=== PATIENT | male | born 1950 | race Caucasian/White ===

== ENCOUNTER 2019-05-23 11:43 | Observation (INO) ==
[2019-05-23 12:26] LABS: BASOPHILS % (AUTO) 0.6 % (0.2-1.0); EOSINOPHILS # (AUTO) 0.3 x10^3/uL (0.0-0.2); EOSINOPHILS % (AUTO) 3.3 % (0.9-2.9); HEMATOCRIT 43.4 % (42.0-54.0); HEMOGLOBIN 14.8 g/dL (13.5-18.0); LYMPHOCYTES # (AUTO) 1.3 X10^3/uL (1.3-2.9); LYMPHOCYTES % (AUTO) 15.3 % (21.0-51.0); MEAN CORPUSCULAR HEMOGLOBIN 31.5 pg (27.0-34.0); MEAN CORPUSCULAR HGB CONC 34.1 g/dL (33.0-35.0); MEAN CORPUSCULAR VOLUME 92.4 fL (80.0-100.0); MEAN PLATELET VOLUME 8.4 fL (7.4-11.0); MONOCYTES # (AUTO) 0.4 x10^3/uL (0.3-0.8); MONOCYTES % (AUTO) 5.2 % (0.0-13.0); NEUTROPHILS # (AUTO) 6.4 x10^3/uL (2.2-4.8); NEUTROPHILS % (AUTO) 75.6 % (42.0-75.0); PLATELET COUNT 166 X10^3/uL (150.0-450.0); RED BLOOD COUNT 4.69 X10^6/uL (4.7-6.0); RED CELL DISTRIBUTION WIDTH 13.3 % (11.6-16.5); WHITE BLOOD COUNT 8.5 X10^3/uL (3.6-10.0)
[2019-05-23 12:40] LABS: ALBUMIN 3.2 g/dL (3.4-5.0); CALCIUM 8.9 mg/dL (8.5-10.1); CARBON DIOXIDE 28.3 mmol/L (21-32); COR CA(FOR HYPOALB) 9.5 mg/dL (8.5-10.1); CREATININE 1.64 mg/dL (0.70-1.30); TOTAL PROTEIN 7.1 g/dL (6.4-8.2)
[2019-05-23] MEDS ORDERED: NS 1000 ML 1,000 ML IV SCH (13:00)
[2019-05-23 13:10] LABS: CKMB % 1.4 % (<4); CREATINE KINASE 71 Units/L (39-308); TROPONIN I < 0.02 ng/mL (0-1.5)
--- NOTE | 2019-05-23 15:11 | DR.GENAD ---
HPI Time Seen Time Seen by Provider: 05/23/19 12:03 PCP Primary Care Physician: KALPANA Source History Provided: Patient and EMS Mode of Arrival Mode of Arrival: EMS Timing Onset of Chief Complaint: 05/23/19 PMH PMH Past Medical History: Yes Past Medical History: Asthma, Dementia and Hypertension Past Surgical History: Yes Family History History of Family Medical Conditions: No Social History Does patient currently use any type of tobacco product: No Have you used tobacco products in the last 12 months: No Type of Tobacco Use: None Does any household member use tobacco: No Alcohol Use: None Do you use any recreational Drugs:: No Lives With: Family Lives Where: Home infectious screening In the last 2 months have you had wt loss of >10#?: NO Have you had fever, night sweats or hemotysis?: No Have you traveled outside the country in the last 6 months?: No Isolation: Standard ROS Review of Systems Constitutional: No Symptoms Reported Eyes: No Symptoms Reported ENTM: No Symptoms Reported Respiratoy: No Symptoms Reported Cardiovascular: No Symptoms Reported Gastrointestinal/Abdominal: No Symptoms Reported Genitourinary: No Symptoms Reported Neurological: No Symptoms Reported Musculoskeletal: No Symptoms Reported Integumentary: No Symptoms Reported Endocrine: No Symptoms Reported All Other Systems: Reviewed and Negative PE Vital Signs Vitals: Temperature 98.7 F Pulse Rate [Apical] 68 Pulse Rate 55 Respiratory Rate 13 Blood Pressure [Right Arm] 148/93 Blood Pressure 142/72 O2 Sat by Pulse Oximetry 96 General Limitations: No Limitations General Appearance: Alert, In No Apparent Distress, Appears Intoxicated and Anxious Head Head Exam: Normal Inspection, Atraumatic and Normocephalic Eyes Eye exam: Normal Appearance, PERRL and EOMI ENT ENT Exam: Normal Exam, Normal Oropharynx and Normal External Ear Exam External Ear Exam: Normal External Inspection and Auricular Hematoma TM/Canal Exam: Bilateral: Normal Nose Exam: Normal Nose Exam Mouth Exam: Normal Inspection Throat Exam: Normal Inspection Neck Neck Exam: Normal Inspection Chest Chest Inspection: Normal Inspection and Symmetric Chest Wall Rise Respiratory Respiratory Exam: Normal Lung Sounds Bilat Respiratory Exam: Bilateral: Clear to Auscultation Cardiovascular Cardiovascular Exam: Regular Rate and Normal Rhythm Abdominal Exam Abdominal Exam: Normal Inspection, Normal Bowel Sounds and Soft Extremities Extremities Exam: Normal Inspection and Full ROM Back Back Exam: Normal Inspection and Full ROM Neurologic Neurological Exam: Alert and Oriented X3 Psychiatric Psychiatric Exam: Normal Affect and Normal Mood Skin Skin Exam: Warm, Dry and Intact COURSE Treatment Treatment: Chest pain r/o protocol, Reevaluation 1st: Improved ROR Labs Reviewed Laboratory Results Reviewed?: Yes Result Diagrams: 05/23/19 12:17 05/23/19 12:17 Laboratory: WBC 8.5 X10^3/uL (3.6-10.0) 05/23/19 12:17 RBC 4.69 X10^6/uL (4.7-6.0) L 05/23/19 12:17 Hgb 14.8 g/dL (13.5-18.0) 05/23/19 12:17 Hct 43.4 % (42.0-54.0) 05/23/19 12:17 MCV 92.4 fL (80.0-100.0) 05/23/19 12:17 MCH 31.5 pg (27.0-34.0) 05/23/19 12:17 MCHC 34.1 g/dL (33.0-35.0) 05/23/19 12:17 RDW 13.3 % (11.6-16.5) 05/23/19 12:17 Plt Count 166 X10^3/uL (150.0-450.0) 05/23/19 12:17 MPV 8.4 fL (7.4-11.0) 05/23/19 12:17 Neut % (Auto) 75.6 % (42.0-75.0) H 05/23/19 12:17 Lymph % (Auto) 15.3 % (21.0-51.0) L 05/23/19 12:17 [place] % (Auto) 5.2 % (0.0-13.0) 05/23/19 12:17 Eos % (Auto) 3.3 % (0.9-2.9) H 05/23/19 12:17 Baso % (Auto) 0.6 % (0.2-1.0) 05/23/19 12:17 Neut # (Auto) 6.4 x10^3/uL (2.2-4.8) H 05/23/19 12:17 Lymph # (Auto) 1.3 X10^3/uL (1.3-2.9) 05/23/19 12:17 [place] # (Auto) 0.4 x10^3/uL (0.3-0.8) 05/23/19 12:17 Eos # (Auto) 0.3 x10^3/uL (0.0-0.2) H 05/23/19 12:17 Baso # (Auto) 0.0 X10^3/uL (0.0-0.1) 05/23/19 12:17 Absolute Nucleated RBC 0.0 /100WBC 05/23/19 12:17 INR Target Range - 05/23/19 12:17 INR 1.00 (0.8-1.3) 05/23/19 12:17 Sodium 143 mmol/L (136-145) 05/23/19 12:17 Corrected Sodium 143 mmol/L (136-145) 05/23/19 12:17 Potassium 4.1 mmol/L (3.5-5.1) 05/23/19 12:17 Chloride 106 mmol/L (98-107) 05/23/19 12:17 Carbon Dioxide 28.3 mmol/L (21-32) 05/23/19 12:17 BUN 25 mg/dL (7-18) H 05/23/19 12:17 Creatinine 1.64 mg/dL (0.70-1.30) H 05/23/19 12:17 Est GFR (MDRD) Af Amer 54 (>60) L 05/23/19 12:17 Est GFR (MDRD) Non-Af 44 (>60) L 05/23/19 12:17 Glucose 112 mg/dL (65-99) H 05/23/19 12:17 Calcium 8.9 mg/dL (8.5-10.1) 05/23/19 12:17 Corrected Calcium 9.5 mg/dL (8.5-10.1) 05/23/19 12:17 Magnesium 2.0 mg/dL (1.7-2.9) 05/23/19 12:17 Total Bilirubin 0.60 mg/dL (0.2-1.0) 05/23/19 12:17 AST 31 Units/L (15-37) 05/23/19 12:17 ALT 33 Units/L (12-78) 05/23/19 12:17 Alkaline Phosphatase 136 Units/L (46-116) H 05/23/19 12:17 Creatine Kinase 71 Units/L (39-308) 05/23/19 12:17 CK-MB (CK-2) 1.0 ng/mL (0-4.0) 05/23/19 12:17 CK/CKMB % Calc 1.4 % (<4) 05/23/19 12:17 Troponin I < 0.02 ng/mL (0-1.5) 05/23/19 12:17 C-Reactive Protein 1.30 mg/L (0-3.0) 05/23/19 12:17 Total Protein 7.1 g/dL (6.4-8.2) 05/23/19 12:17 Albumin 3.2 g/dL (3.4-5.0) L 05/23/19 12:17 Globulin 3.9 g/dL (2.5-4.5) 05/23/19 12:17 Albumin/Globulin Ratio 0.8 Ratio (1.1-2.1) L 05/23/19 12:17 Other Results Comments: CT Brain: Advanced degenerative white matter hypoattenuation of the supratentorial brain, 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 Age-related cortical volume loss. Otherwise no acute intracranial abnormalities. Individualized dose optimization technique were utilized to reduce radiation dose through one or more of the following means: automated exposure control adjustment of mA and /or KV according to patient size, or through use of iterative reconstruction technique. Opioid Opioid Risk Tool Total: 0 Total Score Risk Category: Low Risk Copyright: [facility] predicting aberrant behaviors Diagnosis Discharge Problem: Syncope Qualifiers: Syncope type: unspecified Qualified Code(s): R55 - Syncope and collapse
[2019-05-23] MEDS ORDERED: DUONEB 0.5 MG/3 MG IN PRN (15:20)
[2019-05-23] MEDS ORDERED: NS 1000 ML 1,000 ML ONE (15:36)
[2019-05-23] MEDS: NS 1000 ML 1,000 ML IV SCH (15:48)
[2019-05-23 16:57] LABS: BILIRUBIN,URINE NEGATIVE (NEGATIVE); BLOOD/HEMOGLOBIN,URINE 1+ (NEGATIVE); GLUCOSE, URINE NEGATIVE (NEGATIVE); KETONES,URINE 2+ (NEGATIVE); LEUKOCYTE ESTERASE ,URINE NEGATIVE (NEGATIVE); NITRITES,URINE NEGATIVE (NEGATIVE); PH,URINE 6.5 (5.0 - 8.0); PROTEIN,URINE NEGATIVE (NEGATIVE); UROBILINOGEN,URINE NORMAL (NORMAL)
[2019-05-23 17:02] LABS: AMORPHOUS SEDIMENT,UR TRACE /HPF (NEGATIVE); APPEARANCE,URINE CLEAR (CLEAR); BACTERIA,URINE NEGATIVE /HPF (NEGATIVE); COLOR,URINE PALE YELLOW (YELLOW); SQUAMOUS EPITHELIAL CELL,UR RARE /HPF (NEGATIVE)
[2019-05-23 17:53] VITALS: BMI 23.6
[2019-05-23 19:17] LABS: CKMB % 1.7 % (<4); CREATINE KINASE 66 Units/L (39-308); CREATINE KINASE MB 1.1 ng/mL (0-4.0); TROPONIN I < 0.02 ng/mL (0-1.5)
[2019-05-23] MEDS: ARICEPT TAB 10 MG PO SCH (20:55)
[2019-05-23] MEDS: NAMENDA TAB 10 MG PO SCH (20:55)
[2019-05-24 01:08] LABS: CKMB % 1.5 % (<4); CREATINE KINASE 69 Units/L (39-308); TROPONIN I < 0.02 ng/mL (0-1.5)
[2019-05-24 05:02] LABS: BASOPHILS # (AUTO) 0.1 X10^3/uL (0.0-0.1); BASOPHILS % (AUTO) 1.1 % (0.2-1.0); EOSINOPHILS # (AUTO) 0.3 x10^3/uL (0.0-0.2); EOSINOPHILS % (AUTO) 3.4 % (0.9-2.9); HEMATOCRIT 40.6 % (42.0-54.0); LYMPHOCYTES # (AUTO) 2.2 X10^3/uL (1.3-2.9); LYMPHOCYTES % (AUTO) 23.8 % (21.0-51.0); MEAN CORPUSCULAR HEMOGLOBIN 31.9 pg (27.0-34.0); MEAN CORPUSCULAR HGB CONC 34.5 g/dL (33.0-35.0); MEAN CORPUSCULAR VOLUME 92.3 fL (80.0-100.0); MEAN PLATELET VOLUME 8.7 fL (7.4-11.0); MONOCYTES # (AUTO) 0.5 x10^3/uL (0.3-0.8); MONOCYTES % (AUTO) 5.6 % (0.0-13.0); NEUTROPHILS # (AUTO) 6.2 x10^3/uL (2.2-4.8); NEUTROPHILS % (AUTO) 66.1 % (42.0-75.0); PLATELET COUNT 154 X10^3/uL (150.0-450.0); RED CELL DISTRIBUTION WIDTH 13.2 % (11.6-16.5); WHITE BLOOD COUNT 9.4 X10^3/uL (3.6-10.0)
[2019-05-24 05:18] LABS: ALANINE AMINOTRANSFERASE 31 Units/L (12-78); ALBUMIN 2.9 g/dL (3.4-5.0); ALKALINE PHOSPHATASE 120 Units/L (46-116); ASPARTATE AMINO TRANSFERASE 26 Units/L (15-37); BLOOD UREA NITROGEN 23 mg/dL (7-18); CALCIUM 8.4 mg/dL (8.5-10.1); CARBON DIOXIDE 27.2 mmol/L (21-32); CHLORIDE 108 mmol/L (98-107); CHOLESTEROL 180 mg/dL (0-200); COR CA(FOR HYPOALB) 9.3 mg/dL (8.5-10.1); CREATININE 1.43 mg/dL (0.70-1.30); HDL CHOLESTEROL 45 mg/dL (40-60); SODIUM 143 mmol/L (136-145); TOTAL PROTEIN 6.4 g/dL (6.4-8.2); TRIGLYCERIDES 57 mg/dL (0-150); eGFR NON BLACK RACES 52 (>60)
[2019-05-24] MEDS: NS 1000 ML 1,000 ML IV SCH ×2 (05:21→21:43)
[2019-05-24] MEDS ORDERED: K-RIDER 10 MEQ/NS 100 ML 10 MEQ/100 ML BAG IV PRN (05:23)
[2019-05-24] MEDS ORDERED: POTASSIUM CHL 40 MEQ/NS 0.45% 500 ML IV PRN (05:23)
[2019-05-24] MEDS ORDERED: POTASSIUM CHL 60 MEQ/NS 0.45% 500 ML IV PRN (05:23)
[2019-05-24] MEDS ORDERED: POTASSIUM CHLORIDE LIQ 20 MEQ UDC PO PRN (05:23)
[2019-05-24] MEDS ORDERED: K-DUR TAB 20 MEQ PO PRN (05:23)
[2019-05-24] MEDS ORDERED: MICRO K EXTEN CAP 10 MEQ PO PRN (05:23)
[2019-05-24] MEDS ORDERED: KLOR-CON PO PRN (05:23)
[2019-05-24] MEDS: MAGNESIUM SULFATE 1 GRAM/100 mL PREMIX 1 GM/100 ML BAG IV PRN ×2 (06:35→10:30)
[2019-05-24] MEDS: NAMENDA TAB 10 MG PO SCH ×2 (09:45→20:40)
[2019-05-24] MEDS ORDERED: PHARMACY CONSULT - DOSE _____ XX SCH (11:00)
[2019-05-24] MEDS: FLONASE NASAL SPRAY ENOSTRIL SCH (13:45)
--- NOTE | 2019-05-24 19:07 | DR.H&P ---
H&P - History & Physical for Day of: H&P Date: 05/23/19 - Chief Complaint Chief Complaint: SYNCOPE, HYPOTENSION - History of Present Illness History of Present Illness: IS A 69 YEAR OLD PATIENT OF OURS WHO PRESENTED TO THE ER WITH REPORTS OF PASSING OUT AFTER TAKING A SHOWER. FAMILY REPORTS THAT HE WAS UNCONSCIOUS FOR APPROXIMATELY 3 MINUTES. EMS WAS CALLED FOR TRANSPORT TO THE ER. EMS REPORTED THAT ON ARRIVAL TO PATIENTS RESIDENCE, HE WAS NOTED WITH A BLOOD PRESSURE OF 78/56. ON ARRIVAL TO THE ER, PATIENT WAS ALERT AND ORIENTED WITH NO COMPLAINTS OF PAIN. HIS VITALS WERE 98.7-55-17-97%-142/72. LABS WERE OBTAINED. ABNORMAL LAB VALUES INCLUDE THE FOLLOWING: RBC 4.69, BUN 25, CREATININE 1.64, GLUCOSE 112, ALK PHOS 136, ALBUMIN 3.2. CARDIAC ENZYMES WITHIN NORMAL LIMITS. A URINALYSIS WAS OBTAINED AND REVEALED: WBC 0-2, RBC 3-5, LEUKOCYTES NEGATIVE, BACTERIA NEGATIVE, NITRITE NEGATIVE. EKG OBTAINED AND REVEALED: SINUS RHYTHM WITH HR 58. A CHEST XRAY WAS OBTAINED AND REVEALED: NO ACUTE CARDIOPULMONARY ABNORMALITY. 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 AGE RELEATED CORTICAL VOLUME LOSS. OTHERWISE, NO ACUTE INTRACRANIAL ABNORMALITIES. HE WAS STARTED ON NORMAL SALINE AT 125ML/HR AND ADMITTED FOR FURTHER EVALUATION AND TREATMENT OF SYNCOPE AND MILD DEHYDRATION. WE PLAN TO FOLLOW UP WITH AM LABS AND CONTINUE TO MONITOR. - Past Medical History Past Medical History: Hypertension, Dementia, Asthma - Past Surgical History Surgical History: Other - Family History Family Medical History: Diabetes Mellitus, NM, Hypertension - Social History Does patient currently use any type of tobacco product: No Have you used tobacco products in the last 12 months: No Type of Tobacco Use: None How many years tobacco product used: 15 Does any household member use tobacco: No Alcohol Use: None Drug Use: Prescription Drugs Prescription drug monitoring program results: PDMP reviewed and no concerns identified - Medications Home Medications: Sulfa (Sulfonamide Antibiotics) [SULFA] Allergy (Verified 05/23/19 11:50) CONTINUE taking the following medications amlodipine 5 mg PO DAILY 05/23/19 [History] donepezil 10 mg PO HS 05/23/19 [History] fluticasone propionate [Flonase Allergy Relief] 2 spray INTRANASAL QDAY 05/23/19 [History] ipratropium-albuterol 1 puff INHALATION QID PRN 05/23/19 [History] memantine 10 mg PO BID 05/23/19 [History] - Review of Systems Constitutional: Weakness Eyes: No Symptoms Reported ENT: No Symptoms Reported Respiratory: No Symptoms Reported Cardiovascular: No Symptoms Reported Gastrointestinal: No Symptoms Reported Genitourinary: No Symptoms Reported Musculoskeletal: No Symptoms Reported Skin: No Symptoms Reported Neurological: Weakness - Physical Exam Vital Signs: Temperature 98.2 F Pulse Rate [Right Brachial] 67 Pulse Rate [Apical] 68 Pulse Rate 70 Respiratory Rate 20 Blood Pressure [Right Arm] 129/78 Blood Pressure 142/72 O2 Sat by Pulse Oximetry 97 Oriented: Normal Eyes: Normal Ear: Normal Nose: Normal Throat: Normal Respiratory: Clear Throughout Cardiovascular: Bradycardia. negative: S3, S4, Murmur : Normal Auscultation: Bowel Sounds: Normal Palpation: Normal Tenderness: Normal Skin: Decreased Turgur Musculoskeletal: Normal Psychiatric: Normal Mood Description: Calm Affect: Normal Speech Pattern: Clear - Assessment/Plan (1) Dehydration Status: Acute Plan: NORMAL SALINE AT 125ML/HR, CONTINUE TO MONITOR (2) Syncope Qualifiers: Syncope type: unspecified Qualified Code(s): R55 - Syncope and collapse Status: Acute Plan: CAROTID DOPPLER AND ECHO IN AM, CONTINUE TO MONITOR - Allergies Allergies/Adverse Reactions: Allergies Allergy/AdvReac Type Severity Reaction Status Date / Time Sulfa (Sulfonamide Allergy Verified 05/23/19 11:50 Antibiotics) [SULFA]
[2019-05-24] MEDS: ARICEPT TAB 10 MG PO SCH (20:40)
[2019-05-25 05:11] LABS: BASOPHILS % (AUTO) 0.5 % (0.2-1.0); EOSINOPHILS # (AUTO) 0.4 x10^3/uL (0.0-0.2); EOSINOPHILS % (AUTO) 4.4 % (0.9-2.9); HEMATOCRIT 39.4 % (42.0-54.0); HEMOGLOBIN 13.6 g/dL (13.5-18.0); LYMPHOCYTES # (AUTO) 2.4 X10^3/uL (1.3-2.9); MEAN CORPUSCULAR HEMOGLOBIN 31.9 pg (27.0-34.0); MEAN CORPUSCULAR HGB CONC 34.6 g/dL (33.0-35.0); MEAN CORPUSCULAR VOLUME 92.2 fL (80.0-100.0); MEAN PLATELET VOLUME 8.8 fL (7.4-11.0); MONOCYTES # (AUTO) 0.6 x10^3/uL (0.3-0.8); MONOCYTES % (AUTO) 5.7 % (0.0-13.0); NEUTROPHILS # (AUTO) 6.5 x10^3/uL (2.2-4.8); NEUTROPHILS % (AUTO) 65.4 % (42.0-75.0); PLATELET COUNT 165 X10^3/uL (150.0-450.0); RED BLOOD COUNT 4.28 X10^6/uL (4.7-6.0); RED CELL DISTRIBUTION WIDTH 13.2 % (11.6-16.5); WHITE BLOOD COUNT 9.9 X10^3/uL (3.6-10.0)
[2019-05-25 05:20] LABS: ALANINE AMINOTRANSFERASE 24 Units/L (12-78); ALBUMIN 2.9 g/dL (3.4-5.0); ALKALINE PHOSPHATASE 112 Units/L (46-116); ASPARTATE AMINO TRANSFERASE 26 Units/L (15-37); BLOOD UREA NITROGEN 18 mg/dL (7-18); CALCIUM 8.4 mg/dL (8.5-10.1); CARBON DIOXIDE 29.7 mmol/L (21-32); CHLORIDE 106 mmol/L (98-107); COR CA(FOR HYPOALB) 9.3 mg/dL (8.5-10.1); CREATININE 1.32 mg/dL (0.70-1.30); SODIUM 142 mmol/L (136-145); TOTAL PROTEIN 6.5 g/dL (6.4-8.2); eGFR NON BLACK RACES 57 (>60)
[2019-05-25 08:08] VITALS: BP 170/98
[2019-05-25] MEDS ORDERED: NORVASC TAB 5 MG PO SCH (09:00)
[2019-05-25] MEDS: NAMENDA TAB 10 MG PO SCH (09:12)
[2019-05-25] MEDS: FLONASE NASAL SPRAY ENOSTRIL SCH (09:14)
--- NOTE | 2019-05-25 10:22 | PCM.PROG ---
Progress Note - Progress Note for Day of Date of Exam: 05/24/19 - Subjective Subjective: WAS ADMITTED FOR SYNCOPE AND DEHYDRATION. TODAY, HE IS ALERT AND ORIENTED, LYING IN BED ON MORNING ROUNDS. HE REPORTS COMPLAINTS OF WEAKNESS AND INTERMITTENT DIZZINESS TODAY. ON EXAMINATION, HEART IS REGULAR IN RATE AND RHYTHM. BILATERAL LUNGS ARE NOTED WITH DIMINISHED LUNG SOUNDS THROUGHOUT. ABDOMEN IS ROUND, SOFT, AND NON-TENDER WITH NORMAL BOWEL SOUNDS NOTED IN ALL QUADRNATS. HIS VITALS THIS MORNING ARE: 98.0-68-18-97%-136/80. LABS WERE OBTAINED. ABNORMAL LAB VALUES INCLUDE THE FOLLOWING: RBC 4.40, HCT 40.6, CHLORIDE 108, BUN 23, CREATININE 1.43, CALCIUM 8.4, ALK PHOS 120, ALBUMIN 2.9, LDL 124. CARDIAC ENZYMES HAVE BEEN WITHIN NORMAL LIMITS. NO CHANGES NOTED TO EKGs. TODAY, WE WILL OBTAIN A CAROTID DOPPLER AND ECHO. OTHERWISE, WE WILL CONTINUE TO MONITOR ON TELEMETRY AND FOLLOW UP WITH AM LABS. - Past Medical Family Social History Past Med/Fam/Surg Hx: No changes since H&P Allergies: Allergies Sulfa (Sulfonamide Antibiotics) [SULFA] Allergy (Verified 05/23/19 11:50) - Review of Systems ROS: No change since H&P - Vital Signs and I&O's Vital Signs: Temperature 98.3 F Pulse Rate [Right Brachial] 55 Pulse Rate [Apical] 68 Pulse Rate 68 Respiratory Rate 18 Blood Pressure [Right Arm] 170/98 Blood Pressure 142/72 O2 Sat by Pulse Oximetry 96 Intake and Output: Intake & Output 05/22/19 05/23/19 05/24/19 05/25/19 11:59 11:59 11:59 11:59 Intake Total 2124 / 2124 2260 / 2260 Output Total 1100 / 1100 950 / 950 Balance 1024 / 1024 1310 / 1310 - Physical Exam Oriented: Normal Eyes: Normal Ear: Normal Nose: Normal Throat: Normal Respiratory: Generalized, Diminished Cardiovascular: Normal. negative: S3, S4, Murmur : Normal Auscultation: Bowel Sounds: Normal Palpation: Normal Tenderness: Normal Skin: Decreased Turgur Musculoskeletal: Normal Psychiatric: Normal Mood Description: Calm Affect: Normal Speech Pattern: Clear - Laboratory and Diagnostics Result Diagrams: 05/25/19 04:51 05/25/19 04:51 Labs: Laboratory WBC 9.9 X10^3/uL (3.6-10.0) 05/25/19 04:51 RBC 4.28 X10^6/uL (4.7-6.0) L 05/25/19 04:51 Hgb 13.6 g/dL (13.5-18.0) 05/25/19 04:51 Hct 39.4 % (42.0-54.0) L 05/25/19 04:51 MCV 92.2 fL (80.0-100.0) 05/25/19 04:51 MCH 31.9 pg (27.0-34.0) 05/25/19 04:51 MCHC 34.6 g/dL (33.0-35.0) 05/25/19 04:51 RDW 13.2 % (11.6-16.5) 05/25/19 04:51 Plt Count 165 X10^3/uL (150.0-450.0) 05/25/19 04:51 MPV 8.8 fL (7.4-11.0) 05/25/19 04:51 Neut % (Auto) 65.4 % (42.0-75.0) 05/25/19 04:51 Lymph % (Auto) 24.0 % (21.0-51.0) 05/25/19 04:51 [place] % (Auto) 5.7 % (0.0-13.0) 05/25/19 04:51 Eos % (Auto) 4.4 % (0.9-2.9) H 05/25/19 04:51 Baso % (Auto) 0.5 % (0.2-1.0) 05/25/19 04:51 Neut # (Auto) 6.5 x10^3/uL (2.2-4.8) H 05/25/19 04:51 Lymph # (Auto) 2.4 X10^3/uL (1.3-2.9) 05/25/19 04:51 [place] # (Auto) 0.6 x10^3/uL (0.3-0.8) 05/25/19 04:51 Eos # (Auto) 0.4 x10^3/uL (0.0-0.2) H 05/25/19 04:51 Baso # (Auto) 0.0 X10^3/uL (0.0-0.1) 05/25/19 04:51 Absolute Nucleated RBC 0.0 /100WBC 05/25/19 04:51 INR Target Range - 05/23/19 12:17 INR 1.00 (0.8-1.3) 05/23/19 12:17 Sodium 142 mmol/L (136-145) 05/25/19 04:51 Corrected Sodium TNP 05/25/19 04:51 Potassium 3.6 mmol/L (3.5-5.1) 05/25/19 04:51 Chloride 106 mmol/L (98-107) 05/25/19 04:51 Carbon Dioxide 29.7 mmol/L (21-32) 05/25/19 04:51 BUN 18 mg/dL (7-18) 05/25/19 04:51 Creatinine 1.32 mg/dL (0.70-1.30) H 05/25/19 04:51 Est GFR (MDRD) Af Amer > 60 (>60) 05/25/19 04:51 Est GFR (MDRD) Non-Af 57 (>60) L 05/25/19 04:51 Glucose 97 mg/dL (65-99) 05/25/19 04:51 Calcium 8.4 mg/dL (8.5-10.1) L 05/25/19 04:51 Corrected Calcium 9.3 mg/dL (8.5-10.1) 05/25/19 04:51 Magnesium 2.0 mg/dL (1.7-2.9) 05/25/19 04:51 Total Bilirubin 0.40 mg/dL (0.2-1.0) 05/25/19 04:51 AST 26 Units/L (15-37) 05/25/19 04:51 ALT 24 Units/L (12-78) 05/25/19 04:51 Alkaline Phosphatase 112 Units/L (46-116) 05/25/19 04:51 Creatine Kinase 69 Units/L (39-308) 05/24/19 00:18 CK-MB (CK-2) 1.0 ng/mL (0-4.0) 05/24/19 00:18 CK/CKMB % Calc 1.5 % (<4) 05/24/19 00:18 Troponin I < 0.02 ng/mL (0-1.5) 05/24/19 00:18 C-Reactive Protein 1.30 mg/L (0-3.0) 05/23/19 12:17 Total Protein 6.5 g/dL (6.4-8.2) 05/25/19 04:51 Albumin 2.9 g/dL (3.4-5.0) L 05/25/19 04:51 Globulin 3.6 g/dL (2.5-4.5) 05/25/19 04:51 Albumin/Globulin Ratio 0.8 Ratio (1.1-2.1) L 05/25/19 04:51 Triglycerides 57 mg/dL (0-150) 05/24/19 04:14 Cholesterol 180 mg/dL (0-200) 05/24/19 04:14 LDL Cholesterol, Calc 124 mg/dL (0-100) H 05/24/19 04:14 HDL Cholesterol 45 mg/dL (40-60) 05/24/19 04:14 Cholesterol/HDL Ratio 4.0 (0.0-5.0) 05/24/19 04:14 Specimen Type Clean catch urine 05/23/19 16:48 Urine Color Pale yellow (YELLOW) 05/23/19 16:48 Urine Appearance Clear (CLEAR) 05/23/19 16:48 Urine pH 6.5 (5.0 - 8.0) 05/23/19 16:48 Ur Specific [place] 1.010 (1.000-1.030) 05/23/19 16:48 Urine Protein Negative (NEGATIVE) 05/23/19 16:48 Urine Glucose (UA) Negative (NEGATIVE) 05/23/19 16:48 Urine Ketones 2+ (NEGATIVE) 05/23/19 16:48 Urine Occult Blood 1+ (NEGATIVE) 05/23/19 16:48 Urine Nitrite Negative (NEGATIVE) 05/23/19 16:48 Urine Bilirubin Negative (NEGATIVE) 05/23/19 16:48 Urine Urobilinogen Normal (NORMAL) 05/23/19 16:48 Ur Leukocyte Esterase Negative (NEGATIVE) 05/23/19 16:48 Urine RBC 3-5 /HPF (NONE SEEN) 05/23/19 16:48 Urine WBC 0-2 /HPF (NONE SEEN) 05/23/19 16:48 Ur Squamous Epith Cells Rare /HPF (NEGATIVE) 05/23/19 16:48 Amorphous Sediment Trace /HPF (NEGATIVE) 05/23/19 16:48 Urine Bacteria Negative /HPF (NEGATIVE) 05/23/19 16:48 Ur Culture Indicated? No/not indicated 05/23/19 16:48 - Plan (1) Dehydration Status: Acute Plan: NORMAL SALINE AT 125ML/HR, CONTINUE TO MONITOR (2) Syncope Status: Acute Qualifiers: Syncope type: unspecified Qualified Code(s): R55 - Syncope and collapse Plan: CAROTID DOPPLER AND ECHO TODAY, CONTINUE TO MONITOR
== END 2019-05-25 11:00 | disposition home or self-care (01) ==
LOC: ER 11:43 → MED/SURG 11:43
PROVIDERS: ADMIT Internal Medicine; ATTEND Internal Medicine
DX: I95.89 Other hypotension; R42 Dizziness and giddiness; R53.1 Weakness; R26.89 Other abnormalities of gait and mobility; R94.4 Abnormal results of kidney function studies; R55 Syncope and collapse; E86.0 Dehydration
CPT/HCPCS: 36415; 70450; 71010; 71045; 80053; 80061; 81001; 82550; 82553; 83735; 84484; 85025; 85610; 86140; 93005; 93306; 93880; 94760; 96365; 96367; 97161; 99284; A4222; G0378; J3475; J7030